=== PATIENT | male | born 1995 | race Caucasian/White ===

== ENCOUNTER 2017-12-26 11:24 | Emergency (ER) | payer OTHER ==
[2017-12-26 11:29] VITALS: O2SAT 98
--- NOTE | 2017-12-26 13:17 | EDPHY ---
H & P Stated Complaint: door blew open impacting forehead/laceration Time Seen by Provider: 12/26/17 13:00 HPI/ROS: Chief Complaint: Forehead laceration HPI: The patient presents to the ED after he sustained a 1 cm forehead laceration at work. He was not knocked unconscious. He has no complaints of headache, neck pain, numbness or weakness. REVIEW OF SYSTEMS: Neuro: no headache, numbness, weakness Musculoskeletal: as above Skin: As above Source: Patient Exam Limitations: No limitations - Personal History Current Tetanus/Diphtheria Vaccine: No - Medical/Surgical History Hx Asthma: No Hx Chronic Respiratory Disease: No Hx Diabetes: No Hx Cardiac Disease: No Hx Renal Disease: No Hx Cirrhosis: No Hx Alcoholism: No Hx HIV/AIDS: No Hx Splenectomy or Spleen Trauma: No Other PMH: denies - Social History Smoking Status: Never smoked - Physical Exam Exam: General Appearance: Alert, no distress Head: 1 cm forehead laceration noted Eyes: Pupils equal, round, reactive ENT, Mouth: No hemotympanum, no oral trauma Neck: Nontender, trachea midline Skin: No lacerations, No abrasion Back: No midline T/L/S pain Extremities: Nontender, full range of motion Neurological: GCS 15 Constitutional: Initial Vital Signs Temperature (C) 36.5 C 12/26/17 11:26 Heart Rate 90 12/26/17 11:26 Respiratory Rate 18 12/26/17 11:26 Blood Pressure 139/73 H 12/26/17 11:26 O2 Sat (%) 98 12/26/17 11:26 O2 Delivery Mode Room Air Allergies/Adverse Reactions: No Known Allergies Allergy (Unverified 12/26/17 11:26) Home Medications: Medication Instructions Recorded NK [No Known Home Meds] 12/26/17 Medical Decision Making Procedures: Procedure: Laceration repair. Verbal consent was obtained from the patient. The 1 cm laceration on the forehead was anesthetized using lidocaine with epinephrine. The wound was irrigated, draped and explored to its base with a gloved finger. There were no deep structures involved. The wound was repaired with 2 6-0 Ethilon sutures. The wound repair was simple. The procedure was performed by myself. Departure - Departure Disposition: Home, Routine, Self-Care Clinical Impression: Forehead laceration Condition: Good Instructions: Laceration (ED) Additional Instructions: 1. Return to the emergency department in 5 days for suture removal.
[2017-12-26 13:44] VITALS: BP 144/85; PULSE 86; RESP 16; TEMP 98.2
== END 2017-12-26 13:44 | disposition home or self-care (01) ==
PROC: 0HQ1XZZ Repair Face Skin, External Approach (ICD-10-PCS; principal; 2017-12-26)
DX: S01.81XA Laceration without foreign body of other part of head, initial encounter (principal); X58.XXXA Exposure to other specified factors, initial encounter; Y99.0 Civilian activity done for income or pay; Y93.89 Activity, other specified